=== PATIENT | female | born 2000 | race Caucasian/White ===

== ENCOUNTER 2023-07-04 08:48 | Emergency (ER) | payer MEDICAID ==
[~2023-07-04] VITALS: Ht 172.7 cm; Wt 69.0 kg
[2023-07-04 09:07] VITALS: O2SAT 100
[2023-07-04] MEDS ORDERED: METOCLOPRAMIDE HCL 10MG/2ML VIAL IV ONE (09:30)
[2023-07-04] MEDS ORDERED: ACETAMINOPHEN 325MG TABLET PO ONE (09:30)
[2023-07-04 09:56] LABS: BASOPHILS % 0.5 % (0.0-2.0); EOSINOPHILS % 1.8 % (0.0-5.0); HEMATOCRIT. 36.3 % (36.0-48.0); HEMOGLOBIN. 12.5 g/dL (12.0-16.0); LYMPHOCYTES % 44.3 % (20.0-50.0); MEAN CORPUSCULAR HEMOGLOBIN 31.6 pg (28.0-32.0); MEAN CORPUSCULAR HGB CONC 34.4 g/dL (31.0-37.0); MEAN CORPUSCULAR VOLUME 91.9 fL (81.0-99.0); MEAN PLATELET VOLUME 7.8 fl (7.4-10.4); MONOCYTES % 5.4 % (2.0-8.0); PLATELET 280 x1000/uL (130-400); RED BLOOD CELL COUNT 3.95 mill/uL (4.2-5.4); RED CELL DISTRIBUTION WIDTH 13.2 % (11.6-14.6); WHITE BLOOD COUNT 6.9 x1000/uL (4.5-11.0)
[2023-07-04 10:04] LABS: HCG SCREEN NEGATIVE
[2023-07-04 10:05] LABS: ALANINE AMINOTRANSFERASE 11 IU/L (10-49); ALBUMIN 4.2 g/dL (3.2-4.8); ASPARTATE AMINOTRANSFERASE 17 IU/L (<34); BILIRUBIN TOTAL 0.4 mg/dL (0.1-1.0); CARBON DIOXIDE 27 mEq/L (21-32); CHLORIDE 108 mEq/L (98-107); CREATININE 0.7 mg/dL (0.6-1.0); GLUCOSE 96 mg/dL (70-105); POTASSIUM 4.1 mEq/L (3.5-5.1); PROTEIN TOTAL 6.7 g/dL (6.0-8.3); SODIUM 139 mEq/L (136-145); UREA NITROGEN BLOOD 5 mg/dL (9-23)
[2023-07-04] MEDS: ACETAMINOPHEN 325MG TABLET PO NR (11:53)
[2023-07-04] MEDS: SODIUM CHLORIDE 0.9% 1,000 ML IV ONE (11:53)
[2023-07-04] MEDS: METOCLOPRAMIDE HCL 10MG/2ML VIAL IV NR (11:53)
[2023-07-04 13:49] VITALS: BP 109/56; PULSE 64; RESP 15; TEMP 98.5
== END 2023-07-04 13:50 | disposition home or self-care (01) ==
LOC: ER 08:48
DX: R51.9 Headache, unspecified (principal)
CPT/HCPCS: 80053; 84703; 85025; 36415; 96361; 96374; 99283; J2765; J7030; Z7610 ×2

== ENCOUNTER 2023-09-03 14:15 | Emergency (ER) | payer MEDICAID ==
[~2023-09-03] VITALS: Ht 172.7 cm; Wt 70.0 kg
[2023-09-03 14:16] VITALS: O2SAT 98
[2023-09-03] MEDS: ACETAMINOPHEN 325MG TABLET PO STA (14:19)
[2023-09-03] MEDS ORDERED: BUTA1CAP45 MT (15:23)
[2023-09-03 16:09] VITALS: BP 124/84; PULSE 81; RESP 16; TEMP 98.6
== END 2023-09-03 16:21 | disposition home or self-care (01) ==
LOC: ER 14:29
DX: R51.9 Headache, unspecified (principal)
CPT/HCPCS: 81025; 70450; 99284; Z7610

== ENCOUNTER 2025-01-19 15:37 | Emergency (ER) | payer MEDICAID ==
[~2025-01-19] VITALS: Ht 167.6 cm; Wt 70.0 kg
[~2025-01-19 15:37] MED LIST: BUTA1CAP45 MT
[2025-01-19 15:46] VITALS: O2SAT 100
[2025-01-19 17:18] LABS: BASOPHILS % 0.6 % (0.0-2.0); EOSINOPHILS % 3.2 % (0.0-5.0); HEMATOCRIT. 37.2 % (36.0-48.0); HEMOGLOBIN. 12.6 g/dL (12.0-16.0); LYMPHOCYTES % 40.5 % (20.0-50.0); MEAN PLATELET VOLUME 8.1 fl (7.4-10.4); MONOCYTES % 5.4 % (2.0-8.0); NEUTROPHILS % 50.3 % (40.0-76.0); PLATELET 278 x1000/uL (130-400); RED BLOOD CELL COUNT 4.03 mill/uL (4.2-5.4); RED CELL DISTRIBUTION WIDTH 13.2 % (11.6-14.6)
[2025-01-19] MEDS: KETOROLAC 15MG/ML VIAL IV ONE (17:30)
[2025-01-19] MEDS: ONDANSETRON HCL 4MG/2ML INJ IV ONE (17:30)
[2025-01-19 17:33] LABS: CREATININE 0.6 mg/dL (0.6-1.0)
[2025-01-19 17:34] LABS: UREA NITROGEN BLOOD 11 mg/dL (9-23)
[2025-01-19 17:35] LABS: ASPARTATE AMINOTRANSFERASE 13 IU/L (<34)
[2025-01-19 17:36] LABS: BILIRUBIN DIRECT < 0.1 mg/dL (<=3.0); BILIRUBIN TOTAL 0.3 mg/dL (0.1-1.0); PROTEIN TOTAL 7.0 g/dL (6.0-8.3)
[2025-01-19 17:41] LABS: HCG SCREEN NEGATIVE
[2025-01-19] MEDS ORDERED: IBUP-1455 MT (19:17)
[2025-01-19 19:40] VITALS: BP 103/55; PULSE 67; RESP 15; TEMP 36.8; O2SAT 98
[2025-01-19] MEDS ORDERED: IOHEXOL-350 100 ML BOTTLE ONE (22:46)
== END 2025-01-19 19:46 | disposition home or self-care (01) ==
LOC: ER 15:37
DX: G43.909 Migraine, unspecified, not intractable, without status migrainosus (principal); Z79.899 Other long term (current) drug therapy
CPT/HCPCS: 99285; 96374; 70496; 96375; 80076; 80048; 84703; 85025; 36415; J1885; Q9967; J2405